=== PATIENT | male | born 1955 ===

== ENCOUNTER 2021-08-05 16:24 | Inpatient (IN) ==
[2021-08-06] MEDS: *HR* OxyCODONE Immed Rel 5 MG TABLET PO PRN ×2 (00:41→08:20)
[2021-08-06 07:50] LABS: Basophils % 0.2 %; Eosinophils % 0.3 %; Hematocrit 27.9 % (37.5-50.1); Hemoglobin 9.1 g/dL (12.9-16.9); Immature Granulocytes % 2.9 % (0-4); Lymphocytes # 0.6 K/mcL (0.6-4.6); Lymphocytes % 6.5 %; Mean Corpuscular HGB Conc 32.6 g/dL (31.6-35.5); Mean Corpuscular Hemoglobin 31.4 pg (28.0-33.3); Mean Corpuscular Volume 96.2 fL (83.0-100.0); Mean Platelet Volume 10.5 fL (9.4-12.4); Monocytes # 0.8 K/mcL (0.0-1.3); Monocytes % 9.3 %; Neutrophils # 6.9 K/mcL (1.6-8.9); Platelet Count 151 K/mcL (140-400); Red Cell Distribution Width 14.5 % (11.5-14.5); Segmented Neutrophils % 80.8 %; White Blood Count 8.6 K/mcL (4.3-11.1)
[2021-08-06 08:10] LABS: BUN/Creatinine Ratio 18 (6-26); Blood Urea Nitrogen 12 mg/dL (8-23); Calcium 7.5 mg/dL (8.6-10.3); Carbon Dioxide 28 mEq/L (23-29); Chloride 91 mEq/L (98-107); Glucose 113 mg/dL (70-105); Osmolality,Calculated 267 (280-300); Potassium 3.6 mEq/L (3.5-5.1); Sodium 128 mEq/L (136-145); eGFR For African Americans > 60 (> 60); eGFR For Non-African Americans > 60 (> 60)
[2021-08-06] MEDS: Gabapentin 400 MG CAPSULE PO SCH ×3 (08:19→21:03)
[2021-08-06] MEDS: Furosemide 40 MG TABLET PO SCH (08:19)
[2021-08-06] MEDS: lisinopriL 20 MG TABLET PO SCH (08:19)
[2021-08-06] MEDS: Metoprolol XL (24 HR) Succ 50 MG TAB.ER.24H PO SCH ×2 (08:20→21:04)
[2021-08-06] MEDS: *HR* Enoxaparin 40 MG/0.4 ML SYRINGE SQ SCH (08:20)
[2021-08-06] MEDS: Acetaminophen 325 MG TABLET PO PRN (16:55)
[2021-08-06] MEDS: polyethylene glycoL 3350 17 GM POWD.PACK PO SCH (20:58)
[2021-08-06] MEDS: Melatonin 3 MG TABLET PO PRN (21:04)
[2021-08-06] MEDS: Simethicone 80 MG TAB.CHEW PO PRN (21:55)
[2021-08-07] MEDS: *HR* OxyCODONE Immed Rel 5 MG TABLET PO PRN (06:43)
[2021-08-07] MEDS: Simethicone 80 MG TAB.CHEW PO PRN ×2 (06:44→22:30)
[2021-08-07] MEDS: *HR* Enoxaparin 40 MG/0.4 ML SYRINGE SQ SCH (06:44)
[2021-08-07] MEDS: Metoprolol XL (24 HR) Succ 50 MG TAB.ER.24H PO SCH ×2 (09:30→22:29)
[2021-08-07] MEDS: Gabapentin 400 MG CAPSULE PO SCH ×3 (09:30→22:29)
[2021-08-07] MEDS: Furosemide 40 MG TABLET PO SCH (09:31)
[2021-08-07] MEDS: Acetaminophen 325 MG TABLET PO PRN ×2 (09:34→22:30)
[2021-08-07] MEDS: lisinopriL 20 MG TABLET PO SCH (09:36)
[2021-08-07] MEDS: Melatonin 3 MG TABLET PO PRN (22:29)
[2021-08-07] MEDS: polyethylene glycoL 3350 17 GM POWD.PACK PO SCH (22:30)
[2021-08-08] MEDS: *HR* Enoxaparin 40 MG/0.4 ML SYRINGE SQ SCH (06:04)
[2021-08-08] MEDS: Furosemide 40 MG TABLET PO SCH (08:10)
[2021-08-08] MEDS: lisinopriL 20 MG TABLET PO SCH (08:10)
[2021-08-08] MEDS: Gabapentin 400 MG CAPSULE PO SCH ×3 (08:10→20:35)
[2021-08-08] MEDS: Metoprolol XL (24 HR) Succ 50 MG TAB.ER.24H PO SCH ×2 (08:11→20:36)
[2021-08-08] MEDS: Acetaminophen 325 MG TABLET PO PRN ×2 (09:18→20:36)
[2021-08-08] MEDS: Melatonin 3 MG TABLET PO PRN (20:36)
[2021-08-08] MEDS: polyethylene glycoL 3350 17 GM POWD.PACK PO SCH (20:36)
[2021-08-09] MEDS: *HR* Enoxaparin 40 MG/0.4 ML SYRINGE SQ SCH (05:25)
[2021-08-09 05:31] LABS: Alanine Aminotransferase 74 Units/L (7-52); Albumin 3.1 g/dL (3.5-5.7); Albumin/Globulin Ratio 1.3 (1.1-2.2); Alkaline Phosphatase 129 Units/L (34-104); Aspartate Amino Transferase 50 Units/L (13-39); BUN/Creatinine Ratio 14 (6-26); Bilirubin,Total 0.9 mg/dL (0.3-1.0); Blood Urea Nitrogen 10 mg/dL (8-23); Carbon Dioxide 26 mEq/L (23-29); Chloride 95 mEq/L (98-107); Globulin 2.3 g/dL (2.4-3.5); Glucose 125 mg/dL (70-105); Magnesium 1.9 mg/dL (1.6-2.6); Osmolality,Calculated 271 (280-300); Potassium 3.9 mEq/L (3.5-5.1); Sodium 130 mEq/L (136-145); Total Protein 5.4 g/dL (6.4-8.9); eGFR For African Americans > 60 (> 60); eGFR For Non-African Americans > 60 (> 60)
[2021-08-09] MEDS: Acetaminophen 325 MG TABLET PO PRN ×2 (05:50→17:22)
[2021-08-09 06:47] LABS: Hematocrit 25.4 % (37.5-50.1); Hemoglobin 8.5 g/dL (12.9-16.9); Mean Corpuscular HGB Conc 33.5 g/dL (31.6-35.5); Mean Corpuscular Hemoglobin 31.7 pg (28.0-33.3); Mean Corpuscular Volume 94.8 fL (83.0-100.0); Mean Platelet Volume 9.2 fL (9.4-12.4); Platelet Count 366 K/mcL (140-400); Red Blood Count 2.68 M/mcL (4.19-5.50); White Blood Count 10.7 K/mcL (4.3-11.1)
[2021-08-09] MEDS: lisinopriL 20 MG TABLET PO SCH (08:37)
[2021-08-09] MEDS: Gabapentin 400 MG CAPSULE PO SCH ×3 (08:37→20:14)
[2021-08-09] MEDS: Metoprolol XL (24 HR) Succ 50 MG TAB.ER.24H PO SCH ×2 (08:37→20:15)
[2021-08-09] MEDS: *HR* OxyCODONE Immed Rel 5 MG TABLET PO PRN ×2 (08:40→21:38)
[2021-08-09] MEDS: tiZANidine 4 MG TABLET PO PRN ×2 (11:34→20:14)
[2021-08-09] MEDS: Simethicone 80 MG TAB.CHEW PO PRN ×2 (17:22→20:14)
[2021-08-09] MEDS: polyethylene glycoL 3350 17 GM POWD.PACK PO SCH (20:15)
[2021-08-09] MEDS: Melatonin 3 MG TABLET PO PRN (20:15)
[2021-08-10] MEDS: *HR* Enoxaparin 40 MG/0.4 ML SYRINGE SQ SCH (05:42)
[2021-08-10] MEDS: *HR* OxyCODONE Immed Rel 5 MG TABLET PO PRN ×2 (06:55→18:27)
[2021-08-10] MEDS: tiZANidine 4 MG TABLET PO PRN ×2 (06:56→18:27)
[2021-08-10] MEDS: lisinopriL 20 MG TABLET PO SCH (08:26)
[2021-08-10] MEDS: Gabapentin 400 MG CAPSULE PO SCH ×3 (08:26→21:11)
[2021-08-10] MEDS: Metoprolol XL (24 HR) Succ 50 MG TAB.ER.24H PO SCH ×2 (08:27→21:11)
[2021-08-10] MEDS: polyethylene glycoL 3350 17 GM POWD.PACK PO SCH (19:19)
[2021-08-10] MEDS: Acetaminophen 325 MG TABLET PO PRN (21:11)
[2021-08-10] MEDS: Melatonin 3 MG TABLET PO PRN (21:11)
[2021-08-11] MEDS: *HR* OxyCODONE Immed Rel 5 MG TABLET PO PRN ×2 (06:32→20:08)
[2021-08-11] MEDS: *HR* Enoxaparin 40 MG/0.4 ML SYRINGE SQ SCH (06:33)
[2021-08-11] MEDS: tiZANidine 4 MG TABLET PO PRN ×2 (06:33→20:07)
[2021-08-11] MEDS: Gabapentin 400 MG CAPSULE PO SCH ×3 (08:46→20:07)
[2021-08-11] MEDS: Metoprolol XL (24 HR) Succ 50 MG TAB.ER.24H PO SCH ×2 (08:46→20:07)
[2021-08-11] MEDS: lisinopriL 20 MG TABLET PO SCH (08:46)
[2021-08-11] MEDS: Acetaminophen 325 MG TABLET PO PRN (11:18)
[2021-08-11] MEDS: Melatonin 3 MG TABLET PO PRN (20:07)
[2021-08-11] MEDS: polyethylene glycoL 3350 17 GM POWD.PACK PO SCH (20:10)
[2021-08-12] MEDS: *HR* Enoxaparin 40 MG/0.4 ML SYRINGE SQ SCH (05:24)
[2021-08-12] MEDS: *HR* OxyCODONE Immed Rel 5 MG TABLET PO PRN ×3 (06:24→19:52)
[2021-08-12] MEDS: tiZANidine 4 MG TABLET PO PRN (06:24)
[2021-08-12] MEDS: Gabapentin 400 MG CAPSULE PO SCH ×3 (08:06→19:54)
[2021-08-12] MEDS: Metoprolol XL (24 HR) Succ 50 MG TAB.ER.24H PO SCH ×2 (08:07→19:54)
[2021-08-12] MEDS: lisinopriL 20 MG TABLET PO SCH (08:07)
[2021-08-12] MEDS: Melatonin 3 MG TABLET PO PRN (19:54)
[2021-08-12] MEDS: polyethylene glycoL 3350 17 GM POWD.PACK PO SCH (19:54)
[2021-08-12 20:03] VITALS: RESP 16
[2021-08-13] MEDS: *HR* OxyCODONE Immed Rel 5 MG TABLET PO PRN (05:56)
[2021-08-13] MEDS: *HR* Enoxaparin 40 MG/0.4 ML SYRINGE SQ SCH (05:56)
[2021-08-13 07:54] VITALS: BP 134/84; PULSE 70; TEMP 97.8; O2SAT 98
[2021-08-13 08:11] LABS: Basophils % 0.4 %; Eosinophils # 0.1 K/mcL (0.0-0.6); Eosinophils % 0.6 %; Hematocrit 33.5 % (37.5-50.1); Hemoglobin 10.6 g/dL (12.9-16.9); Immature Granulocytes % 0.9 % (0-4); Lymphocytes # 0.5 K/mcL (0.6-4.6); Lymphocytes % 5.9 %; Mean Corpuscular HGB Conc 31.6 g/dL (31.6-35.5); Mean Corpuscular Hemoglobin 30.8 pg (28.0-33.3); Mean Corpuscular Volume 97.4 fL (83.0-100.0); Mean Platelet Volume 8.8 fL (9.4-12.4); Monocytes # 0.7 K/mcL (0.0-1.3); Monocytes % 8.6 %; Neutrophils # 6.7 K/mcL (1.6-8.9); Platelet Count 462 K/mcL (140-400); Red Blood Count 3.44 M/mcL (4.19-5.50); Red Cell Distribution Width 15.8 % (11.5-14.5); Segmented Neutrophils % 83.6 %
[2021-08-13 08:29] LABS: Alanine Aminotransferase 65 Units/L (7-52); Albumin 3.8 g/dL (3.5-5.7); Albumin/Globulin Ratio 1.2 (1.1-2.2); Alkaline Phosphatase 238 Units/L (34-104); Aspartate Amino Transferase 34 Units/L (13-39); BUN/Creatinine Ratio 15 (6-26); Bilirubin,Total 1.1 mg/dL (0.3-1.0); Blood Urea Nitrogen 13 mg/dL (8-23); Calcium 9.3 mg/dL (8.6-10.3); Carbon Dioxide 27 mEq/L (23-29); Chloride 93 mEq/L (98-107); Globulin 3.1 g/dL (2.4-3.5); Glucose 118 mg/dL (70-105); Osmolality,Calculated 263 (280-300); Potassium 4.4 mEq/L (3.5-5.1); Sodium 126 mEq/L (136-145); Total Protein 6.9 g/dL (6.4-8.9); eGFR For African Americans > 60 (> 60); eGFR For Non-African Americans > 60 (> 60)
[2021-08-13] MEDS: lisinopriL 20 MG TABLET PO SCH (09:25)
[2021-08-13] MEDS: Metoprolol XL (24 HR) Succ 50 MG TAB.ER.24H PO SCH (09:26)
[2021-08-13] MEDS: Gabapentin 400 MG CAPSULE PO SCH (09:26)
== END 2021-08-13 14:44 | disposition home health service (06) ==
LOC: INPGRE 19:51
PROVIDERS: ADMIT Family Medicine; ATTEND Family Medicine